=== PATIENT | male | born 2000 | race Caucasian/White ===

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

== ENCOUNTER 2022-12-26 10:14 | Emergency (ER) | payer OTHER ==
[~2022-12-26] VITALS: Ht 172.7 cm; Wt 61.2 kg
== END 2022-12-26 11:48 | disposition home or self-care (01) ==
LOC: ER 10:14 → EMR PED 10:14
DX: S01.02XA Laceration with foreign body of scalp, initial encounter (principal); W21.89XA Striking against or struck by other sports equipment, initial encounter; Y93.18 Activity, surfing, windsurfing and boogie boarding; Y92.832 Beach as the place of occurrence of the external cause

== ENCOUNTER 2023-01-02 08:47 | Emergency (ER) | payer OTHER ==
[~2023-01-02] VITALS: Ht 160 cm; Wt 54.4 kg
== END 2023-01-02 09:53 | disposition home or self-care (01) ==
LOC: EMR PED 08:47 → ER 08:48
DX: Z48.02 Encounter for removal of sutures (principal)